=== PATIENT | male | born 1980 | race Caucasian/White ===

== ENCOUNTER 2021-03-30 10:03 | Emergency (ER) | payer OTHER, SELFPAY ==
[2021-03-30 10:15] VITALS: BP 124/75; PULSE 84; RESP 18; TEMP 36.9; O2SAT 100
--- NOTE | 2021-03-30 10:30 | ED.GENADULT ---
HPI - General Adult General Chief complaint: Skin/Abscess/Foreign Body Stated complaint: Rash Rt lower leg Source: patient Mode of arrival: ambulatory Limitations: no limitations History of Present Illness HPI narrative: 40 y/o male. PMHx include: HTN, HLD, DM II. Presents to [facility] today with acute complaints of RLE redness, burning, and pain. He reports manifestaions to have initially developed after wearing long socks and boots at his workplace in the past 1 week. No injury has been identified. No calf swelling, dyspnea, palpitations. No additional areas of integumentary involvement. Related Data Home Medications Medication Instructions Recorded Confirmed escitalopram oxalate 10 mg PO DAILY 03/30/21 03/30/21 fenofibrate nanocrystallized 145 mg PO DAILY 03/30/21 03/30/21 irbesartan 150 mg PO DAILY 03/30/21 03/30/21 metformin 500 mg PO DAILY 03/30/21 03/30/21 Allergies Allergy/AdvReac Type Severity Reaction Status Date / Time cefaclor Allergy Unknown unknown Verified 03/30/21 10:21 Penicillins Allergy Unknown unknown Verified 03/30/21 10:21 Review of Systems Review of Systems: CONSTITUTIONAL: Denies fever, chills, sweats. EYES: Denies visual changes, redness, discharge. ENT: Denies rhinorrhea, congestion, sore throat, otalgia. CARDIOVASCULAR: Denies chest pain, palpitations, edema. RESPIRATORY: Denies dyspnea, wheezing, cough GASTROINTESTINAL: Denies abdominal pain, nausea, vomiting, diarrhea. GENITOURINARY: Denies dysuria, hematuria, abnormal discharge SKIN: Denies rash or itching. Redness and pain to RLE. MUSCULOSKELETAL: Denies acute back pain, joint pain, or myalgia. NEUROLOGIC: Denies numbness, or focal weakness. PSYCHIATRIC: Denies anxiety or depression. All systems reviewed & are unremarkable except as noted in HPI and below Exam Narrative: GENERAL: This is a well-nourished, well-developed adult, in no apparent distress. HEAD: normocephalic, atraumatic. EYES: PERRL. Sclera clear/white. EARS: External ears normal, auditory canals clear and without drainage, TMs normal. NOSE: External nose normal. Positive Rhinorrhea, no obstruction, nares patent. THROAT: Mucous membranes moist, posterior pharynx clear. No exudates. NECK: Neck supple, non-tender without lymphadenopathy, masses or thyromegaly. CARDIOVASCULAR: Regular rate and rhythm without murmurs, gallops, or rubs. Pulses strong RLE. RESPIRATORY: Clear to auscultation. Breath sounds equal bilaterally. No wheezes, rales, or rhonchi. GASTROINTESTINAL: Abdomen soft, non-tender, nondistended. Bowel sounds are active. No guarding. SKIN: warm, intact. With an area of RLE erythema approximately 5 cm in width and located to RLE stoddard. No open wounds or active discharge. Skin is erythematous, taunt, and with minimal unruptured blistering. No unilateral swelling. Negative Surya's RT. NEURO: Alert, active, and age appropriate. No focal neurologic deficits. Good sensation and discrimination RLE. Course Vital Signs Vital signs: Vital Signs Temperature 36.9 C 03/30/21 10:15 Pulse Rate 84 03/30/21 10:15 Respiratory Rate 18 03/30/21 10:15 Blood Pressure 124/75 03/30/21 10:15 Pulse Oximetry 100 03/30/21 10:15 Temperature 36.9 C 03/30/21 10:15 Pulse Rate 84 03/30/21 10:15 Respiratory Rate 18 03/30/21 10:15 Blood Pressure 124/75 03/30/21 10:15 Pulse Oximetry 100 03/30/21 10:15 Medical Decision Making [facility] Narrative Medical decision making narrative: -Suspect RLE cellulitic processes. -Start Clindamycin orally as directed. -OP wound care, Medication instructions, & AVS reviewed. -PCP F/U wound re-check 1 week. -ER with emergent health status changes. Pt agrees. Differential Diagnosis Differential Diagnosis: Differential Diagnosis: Consideration of the following conditions may be warranted for the presenting problem, they are not final diagnoses: Cellulitis, Folliculitis, Contact dermatitis, Insect bite, P
== END 2021-03-30 10:41 | disposition home or self-care (01) ==
PROVIDERS: Emergency Provider Nurse Practitioner Adult Health
DX: L03.115 Cellulitis of right lower limb (principal); E78.5 Hyperlipidemia, unspecified; I10 Essential (primary) hypertension; E11.9 Type 2 diabetes mellitus without complications
CPT/HCPCS: 99213; G0463

== ENCOUNTER 2022-04-13 10:14 | Emergency (ER) | payer OTHER, SELFPAY ==
[2022-04-13 10:38] VITALS: BP 128/62; PULSE 113; RESP 20; TEMP 37; O2SAT 99
--- NOTE | 2022-04-13 10:40 | ED.URI ---
HPI - URI/Sore Throat General Chief Complaint: Upper Respiratory Infection Stated Complaint: congestion,throat irritation Time Seen by Provider: 04/13/22 10:50 Source: patient and RN notes reviewed Mode of arrival: ambulatory Limitations: no limitations History of Present Illness HPI Narrative: 41-year-old male presents to the [facility] with complaints of 2 days of cough, sore throat a lot of mucus in his, stuffy, fatigue and body aches. Reports low-grade fevers at 99. Denies chest pain or shortness of breath. No abdominal pain, nausea or vomiting. Reports taking an at home COVID test which he reports is positive. Wants to confirm his test to get a work note Related Data Home Medications Medication Instructions Recorded Confirmed escitalopram oxalate 10 mg tablet 10 mg PO DAILY 03/30/21 04/13/22 irbesartan 150 mg tablet 150 mg PO DAILY 03/30/21 04/13/22 metformin 500 mg tablet 500 mg PO DAILY 03/30/21 04/13/22 atorvastatin 40 mg tablet 40 mg DAILY 04/13/22 04/13/22 lorazepam 0.5 mg tablet 0.5 mg TID 04/13/22 04/13/22 Allergies Allergy/AdvReac Type Severity Reaction Status Date / Time cefaclor Allergy Unknown Hives Verified 04/13/22 10:52 Penicillins Allergy Unknown Hives Verified 04/13/22 10:52 Review of Systems Review of Systems: All systems reviewed & are unremarkable except as noted in HPI and below Constitutional: Constitutional: Reports no additional constitutional complaints, Denies chills and Denies fever(s) Eyes: Eyes: Reports no additional eye complaints ENT: Reports as per HPI Cardiovascular: Cardiovascular: Reports no additional cardiovascular complaints Respiratory: Respiratory: Reports as per HPI and Reports cough Gastrointestinal: Gastrointestinal: Reports no additional gastrointestinal complaints Musculoskeletal: Musculoskeletal: Reports no additional musculoskeletal complaints Integumentary/Breasts: Skin/Breast: Reports system reviewed and no additional complaints, except as docu Neurologic: Reports system reviewed and no additional complaints, except as documented Psychiatric: Psychiatric: Reports no additional psychiatric complaints Allergic/Immunologic: Allergic/Immunologic: Reports no additional allergic/immunologic complaints PMF Past Medical History Medical History (Updated 04/13/22 @ 15:03 by Clara Austin APRN) Anxiety and depression High cholesterol Comments At the time of my signature, I reviewed and agree with the nursing past medical, surgical, social, and family history. There is no relevant family history pertinent to the patient complaint. Exam Const: General: healthy appearing, no acute distress and alert Nutritional Appearance: well nourished and obese Orientation/consciousness: patient oriented x3 Limitations: no limitations HENMT: Head: normal to inspection Ears: external ears normal, TM's normal bilaterally and EAC's normal General nose exam: Normal external nose present and Normal nares present Face and sinus: normal facial exam Throat: posterior oropharynx normal and uvula midline Eyes: General: appearance normal, both eyes and all related structures Conjunctivae: conjunctivae normal Pupils: Equal, round and reactive pupils present Neck: Neck: normal visual inspection, no lymphadenopathy and no meningeal signs Chest: Chest palpation & inspection: normal inspection of the chest Resp: Effort & Inspection: normal respiratory effort and no use of accessory muscles Auscultation: clear to auscultation bilaterally, no crackles, no rales, no rhonchi and no wheezes Cardio: Rate: regular rate Rhythm: regular rhythm GI: GI Palp: No Tenderness to palpation present (GI) Back/Spine/Pelvis: Cervical Spine: normal cervical lordosis Thoracic/Lumbar Spine: thoracic and lumbar spine normal to inspection Skin: General skin exam: normal color Rashes: no rashes Wounds: no wounds Neuro: General: patient oriented x3, moves all extremities, no meningeal sig
== END 2022-04-13 11:02 | disposition home or self-care (01) ==
PROVIDERS: Emergency Provider Nurse Practitioner
DX: U07.1 COVID-19 (principal); F41.9 Anxiety disorder, unspecified; F32.A Depression, unspecified; E78.00 Pure hypercholesterolemia, unspecified
CPT/HCPCS: 87426; 99213; C9803; G0463